=== PATIENT | female | born 1990 | race African-American/Black ===

== ENCOUNTER 2016-07-30 19:20 | Emergency (ER) | payer OTHER ==
[2016-07-30 18:58] LABS: BASOPHIL% 0.4 % (0-2.5); EOSINOPHIL# 0.4 X10e3 (0-0.7); EOSINOPHIL% 4.1 % (0.0-7.0); HEMATOCRIT 35.1 % (35.0-45.0); HEMOGLOBIN 10.9 gm/dL (12.0-16.0); LYMPHOCYTE# 2.6 X10e3 (1.0-3.5); MEAN CELL VOLUME 76.8 FL (83-96); MEAN CORPUSCULAR HGB CONC 31.2 g/dL (30-36); MEAN PLATELET VOLUME 9.3 FL (6.5-11.5); MONOCYTE# 0.9 X10e3 (0-1.0); MONOCYTE% 10.4 % (3.0-12.0); NEUTROPHIL# 4.8 X10e3 (1.5-7.1); NEUTROPHIL% 55.1 % (40-75); PLATELET COUNT 307 X10e3 (140-420); RED BLOOD COUNT 4.57 X10e (3.90-5.30); RED CELL DISTRIBUTION WIDTH 19.9 % (11.0-15.5); WHITE BLOOD COUNT 8.6 X10e3 (4.0-10.5)
[2016-07-30 19:00] LABS: DIFF IND NO
[~2016-07-30 19:20] MED LIST: ALBUTEROL17 G1 IH; AMOXIL875 MG PO; ATARAX PO; BACTRIM DS TABL1 TA1 PO; BIRTH CONTROL IMPLAN; BIRTH CONTROL PILL PO; CELEXA20 MG PO; CIPRO PO; CLEOCIN HCL300 M1 PO; ERYTHROMYCIN250 M1 PO; FLAGYL PO; FLEXERIL10 M1 PO; FLEXERIL10 MG PO; IBUPROFEN PO; IBUPROFEN800 MG PO; IMPLANON68 MG/IMPL SQ; IRON1 TAB; KEFLEX500 M1 PO; KETOPROFEN PO; MEDROL PO; NITROFURANTOIN100 M3 PO; NO MEDICATIONS; OXYTROL FOR WO1 EACH; PAXIL40 MG; PRENATAL1 TA1 PO; VIBRAMYCIN100 M1 PO; VICODIN 5/1 TAB 5/50 PO; VICODIN 5/500 T1 TAB PO; VIT; VOLTAREN75 MG PO; ZOFRAN ODT4 MG PO; ZOLOFT50 MG PO; ZYRTEC10 M2 PO
== END 2016-07-30 19:51 | disposition home or self-care (01) ==
LOC: CFTX 19:20
PROVIDERS: Physician Assistant
DX: N93.8 Other specified abnormal uterine and vaginal bleeding (principal); D64.9 Anemia, unspecified; J03.90 Acute tonsillitis, unspecified; F41.9 Anxiety disorder, unspecified; F32.9 Major depressive disorder, single episode, unspecified; Z88.1 Allergy status to other antibiotic agents
CPT/HCPCS: 84702; 85025; 87651; 99284

== ENCOUNTER 2016-08-20 16:21 | Emergency (ER) | payer OTHER ==
--- NOTE | ~2016-08-20 | CT71 ---
[facility] A Service of [facility] RADIOLOGY TEXT RESULTS PATIENT: AMY MCKEON LOCATION: [facility] : [birth year] UNIT #: [id number] AGE: [address]: Loree Sarkar MD SEX: F ORDER DR: [id number] [facility] [address] [place], [place] [address] [id number] MR#: [id number] [facility] #: [id number] NAME: AMY MCKEON : 1990 SEX: F STUDY DATE/TIME: 08/20/2016 21:52 UNIT: [facility] ROOM: STUDY DESCRIPTION: CT Head Wo Contrast Attending Physician: Loree Sarkar M.D. Ordering Physician: Loree Sarkar M.D. Primary Care Physician: Ila Billings M.D. MEDICAL IMAGING REPORT This report is preliminary unless electronic signature is present EXAM Head CT without contrast 08/20/2016 HISTORY Dizziness for 1 week worsening today. FINDINGS TECHNIQUE Axial noncontrast images were obtained from the skull base to the vertex. This CT exam was performed with one or more of the following radiation dose reduction techniques: automatic exposure control, adjustment of mA and/or kV according to patient size, and iterative reconstruction. FINDINGS Ventricular size and configuration are normal. There is no evidence of acute infarct or hemorrhage. There are no extraaxial fluid collections. No mass lesion or mass effect is seen. There are no skull fractures. IMPRESSION Normal noncontrast head CT. Dictated by... Roby Lara M.D. THIS IS AN ELECTRONICALLY VERIFIED REPORT Roby Lara M.D. at 08/22/2016 10:42 AM GIANNA/sabino TD: 08/21/2016 08:46 [facility] A Service [facility] RADIOLOGY TEXT RESULTS PATIENT: AMY MCKEON LOCATION: [facility] : [birth year] UNIT #: [id number] AGE: [address]: Loree Sarkar MD SEX: F ORDER DR: RYAN #: [id number] MEDICAL IMAGING REPORT Page 1 of 1 COPY
[2016-08-20 17:14] LABS: URINE SOURCE CLEAN CATCH
[2016-08-20 17:23] LABS: URINE APPEARANCE CLEAR; URINE BILIRUBIN NEG (NEG); URINE BLOOD NEG (NEG); URINE COLOR YELLOW; URINE GLUCOSE NEG (NEG); URINE KETONE NEG (NEG); URINE LEUKOCYTE ESTERASE NEG (NEG); URINE NITRATE NEG (NEG); URINE PROTEIN NEG (NEG); URINE SPECIFIC GRAVITY 1.022 (1.003-1.035); URINE UROBILINOGEN 0.2 MG/DL (NEG)
[2016-08-20 17:29] LABS: CULTURE INDICATED? NO
[2016-08-20 20:42] LABS: BASOPHIL# 0.1 X10e3 (0-0.3); BASOPHIL% 0.7 % (0-2.5); EOSINOPHIL# 0.3 X10e3 (0-0.7); EOSINOPHIL% 3.3 % (0.0-7.0); HEMATOCRIT 37.9 % (35.0-45.0); HEMOGLOBIN 12.1 gm/dL (12.0-16.0); LYMPHOCYTE# 2.6 X10e3 (1.0-3.5); LYMPHOCYTE% 27.5 % (17.0-45.0); MEAN CELL VOLUME 80.4 FL (83-96); MEAN CORPUSCULAR HEMOGLOBIN 25.7 PG (28-34); MEAN PLATELET VOLUME 9.1 FL (6.5-11.5); MONOCYTE# 0.7 X10e3 (0-1.0); MONOCYTE% 7.9 % (3.0-12.0); NEUTROPHIL# 5.7 X10e3 (1.5-7.1); NEUTROPHIL% 60.6 % (40-75); PLATELET COUNT 261 X10e3 (140-420); RED BLOOD COUNT 4.72 X10e (3.90-5.30); RED CELL DISTRIBUTION WIDTH 20.8 % (11.0-15.5); WHITE BLOOD COUNT 9.5 X10e3 (4.0-10.5)
[2016-08-20 20:44] LABS: DIFF IND NO
[2016-08-20 21:03] LABS: ALBUMIN SERUM 4.2 g/dL (3.5-5.0); ALKALINE PHOSPHATASE 67 U/L (32-92); ALT (SGPT) 33 U/L (10-40); AST (SGOT) 22 U/L (10-42); BILIRUBIN,TOTAL 0.2 mg/dL (0.2-2.0); BLOOD UREA NITROGEN 13 mg/dL (9-23); BUN/CREATININE RATIO 21.66; CALCIUM SERUM 9.3 mg/dL (8.4-10.2); CARBON DIOXIDE 27 mmol/L (22-31); CHLORIDE 105 mmol/L (100-111); CREATININE SERUM 0.6 mg/dL (0.6-1.4); GLOM FILT RATE Estimated 146.8 mL/min (>60); GLUCOSE FASTING 89 mg/dL (70-110); POTASSIUM 4.1 mmol/L (3.5-5.1); PROTEIN TOTAL SERUM 7.4 g/dL (6.0-8.3); SODIUM 140 mmol/L (135-145)
[2016-08-20 21:08] LABS: BILIRUBIN, DIRECT <0.1 mg/dL (0.0-0.2); BILIRUBIN,INDIRECT 0.1 mg/dL (0.0-0.9)
== END 2016-08-20 23:50 | disposition home or self-care (01) ==
LOC: CED 16:21
PROVIDERS: Emergency Medicine
DX: H81.10 Benign paroxysmal vertigo, unspecified ear (principal); F41.9 Anxiety disorder, unspecified; F32.9 Major depressive disorder, single episode, unspecified; Z88.1 Allergy status to other antibiotic agents
CPT/HCPCS: 36415; 70450; 80048; 80076; 81003; 84703; 85025; 99284

== ENCOUNTER 2016-10-27 07:34 | Emergency (ER) | payer OTHER ==
[~2016-10-27] VITALS: Ht 170.2 cm; Wt 81.6 kg
[2016-10-27 10:18] LABS: URINE SOURCE CLEAN CATCH
[2016-10-27 10:24] LABS: URINE APPEARANCE CLEAR; URINE BILIRUBIN NEG (NEG); URINE BLOOD 3+ (NEG); URINE COLOR YELLOW; URINE GLUCOSE NEG (NEG); URINE KETONE NEG (NEG); URINE LEUKOCYTE ESTERASE NEG (NEG); URINE NITRATE NEG (NEG); URINE PROTEIN NEG (NEG); URINE SPECIFIC GRAVITY 1.021 (1.003-1.035); URINE UROBILINOGEN 0.2 MG/DL (NEG)
[2016-10-27 10:26] LABS: CULTURE INDICATED? YES; URINE BACTERIA AUWI 1+ (NEGATIVE); URINE SQUAMOUS EPITHELIAL CELL OCC /[HPF]
== END 2016-10-27 11:00 | disposition home or self-care (01) ==
LOC: CED 07:34
PROVIDERS: Nurse Practitioner
DX: M54.41 Lumbago with sciatica, right side (principal); G89.29 Other chronic pain; F41.9 Anxiety disorder, unspecified; F32.9 Major depressive disorder, single episode, unspecified; D64.9 Anemia, unspecified; Z88.1 Allergy status to other antibiotic agents
CPT/HCPCS: 81003; 84703; 87086; 96372; 99284; J1885